=== PATIENT | male | born 1985 | race Caucasian/White ===

== ENCOUNTER 2024-09-22 10:52 | Emergency (ER) | payer OTHER, SELFPAY ==
--- NOTE | ~2024-09-22 | XR_ITS ---
EXAMINATION: XR HAND, LEFT CLINICAL INFORMATION: nail in hand COMPARISON: None available. TECHNIQUE: PA, lateral, and oblique views of the left hand. FINDINGS: A nail is present traversing the thenar eminence dorsal to anterior, without bone involvement. No fracture, dislocation, or suspicious bone lesion. Normal alignment. Soft tissues otherwise normal. XR/XR hand LT min 3V IMPRESSION: Metallic nail present traversing the thenar eminence dorsal to anterior, without bony involvement. Electronically signed by: Mendoza Gonzalez MD 09/22/2024 11:40 AM EDT
--- NOTE | ~2024-09-22 | XR_ITS ---
EXAMINATION: XR HAND 3 OR MORE VIEWS LEFT HISTORY: nail removed COMPARISON: Comparison is made with the prior examination performed earlier in the day. FINDINGS: Three views of the left hand are submitted. Osseous mineralization is normal. There is no fracture or dislocation. The joint spaces are preserved. The previously seen nail within the thenar eminence has been removed. A 4 mm linear metallic foreign body remains within the thenar eminence. Small foci of soft tissue gas are also noted, consistent with the removal of the foreign body. XR/XR hand LT min 3V IMPRESSION: Interval removal of a nail within the thenar eminence. A 4 mm linear metallic foreign body remains. Electronically signed by: Bladimir Ely MD 09/22/2024 01:56 PM EDT
[2024-09-22 11:15] VITALS: BP 156/100; PULSE 75; RESP 16; O2SAT 96; BMI 34.9
--- NOTE | 2024-09-22 11:15 | ED_ITS ---
HPI - General Adult General Chief complaint: Skin/Abscess/Foreign Body Stated complaint: Work injury Time Seen by Provider: 09/22/24 11:49 Source: patient and family (patient's ) Mode of arrival: ambulatory Limitations: no limitations History of Present Illness ED Provider: Bessy Betancourt PA-C HPI narrative: Patient is a 39 year old assigned male at with no reported medical history presenting to the emergency department today with a screw shank nail in his left hand. Patient states that he is right hand dominant. Patient states that he was at work using a nail gun when he accidentally shot his left hand with a 1 and 1/4th inch screw shank nail. Patient denies any numbness, tingling, dizziness, lightheadedness, abdominal pain, nausea, vomiting, fever, chills, blurry vision, double vision, loss of vision, chest pain, difficulty breathing, shortness of breath, back pain, night sweats, pain with urination, increased urinary frequency, increased urinary urgency, blood in his urine or stool, syncope or a near syncopal episode, bowel incontinence, bladder incontinence, or any other complaints at this time. Location: left and upper extremity Radiation: non-radiation Relieving factors: none Exacerbating factors: none Associated symptoms: denies other symptoms Treatments prior to arrival: none Related Data Previous Rx's ?Medication ?Instructions ?Recorded amoxicillin 875 mg-potassium 1 tab PO BID 10 days #20 tabs 09/22/24 clavulanate 125 mg tablet Allergies Allergy/AdvReac Type Severity Reaction Status Date / Time No Known Allergies Allergy Verified 09/22/24 11:16 Review of Systems 2 Constitutional: Constitutional: Reports no additional constitutional complaints, Denies chills, Denies fever(s) and Denies night sweats Eyes: Eyes: Reports no additional eye complaints, Denies blurry vision, Denies change in vision, Denies diplopia, Denies eye discharge, Denies loss of vision and Denies eye pain ENT: Denies dizziness Cardiovascular: Cardiovascular: Reports no additional cardiovascular complaints, Denies chest pain, Denies lightheadedness, Denies Loss of Consciousness and Denies dyspnea Respiratory: Respiratory: Reports no additional respiratory complaints and Denies dyspnea Gastrointestinal: Gastrointestinal: Reports no additional gastrointestinal complaints, Denies abdominal pain, Denies melena, Denies hematochezia, Denies change in bowel habits and Denies change in stool character Genitourinary: Genitourinary: Reports no additional male genitourinary complaints, Denies hematuria, Denies oliguria, Denies difficulty urinating, Denies dysuria, Denies urinary frequency, Denies urinary hesitancy, Denies urinary incontinence and Denies urinary urgency Musculoskeletal: Musculoskeletal: Reports no additional musculoskeletal complaints, Denies numbness and Denies tingling Comments: nail in left hand Neurologic: Denies dizziness, Denies loss of vision, Denies numbness and Denies tingling Psychiatric: Psychiatric: Reports no additional psychiatric complaints Endocrine: Endocrine: Reports no additional endocrine complaints Hematologic/Lymphatic: Hematologic/Lymphatic: Reports no additional hematologic/lymphatic complaints Allergic/Immunologic: Allergic/Immunologic: Reports no additional allergic/immunologic complaints PMFSH Past Medical History Attestation statement: The following information was validated with the patient. (patient's validated all information) Source: old records reviewed, obtained from family (patient's provided additional history and confirmed the history provided by the patient. ) and nursing notes reviewed Social History Social History Smoked in Last 30 Days: No Advance Directives: No Advance Directives Information Provided: Yes Do you have a plan to hurt others: No Plan Physical Exam ED Vital Signs: Vital Signs - 24 hr 09/22/24 11:15 Pulse Rate 75 Respiratory Rate 16 Blood Pressure 156/100 H Pulse Oximetry 96 Oxygen Delivery Method Room Air BMI result Body Mass Index 34.9 Const General: cooperative, no acute distress, alert and awake Nutritional Appearance: well nourished Orientation/consciousness: patient oriented x3 Limitations: no limitations [facility] Head: Yes normal to inspection and Yes atraumatic Ears: hearing grossly normal bilaterally and external ears normal General nose exam: Normal external nose present, no nasal discharge noted and no epistaxis Face and sinus: Yes normal facial exam, No abrasion and No laceration Mouth: Normal oral and palatal mucosa present, no drooling and no muffled voice Eyes General: appearance normal, both eyes and all related structures Periorbital: periorbital findings normal Eyelids: Yes eyelids normal Conjunctivae: conjunctivae normal Pupils: Equal, round and reactive pupils present EOM: EOMs intact bilaterally Neck Neck: Yes normal visual inspection, Yes full ROM and Yes no lymphadenopathy Chest Chest palpation & inspection: normal inspection of the chest Resp Effort & Inspection: normal respiratory effort and able to speak in complete sentences GI Inspection: Yes normal to inspection Neuro General: patient oriented x3, moves all extremities and CN's II-XI intact bilaterally Cranial nerves: Yes Equal, round and reactive pupils present Cognition (Neuro): normal cognition Extrem Other: General: Yes full ROM and Yes capillary refill normal Psych Appearance: grossly normal Mental Status: mental status grossly normal Affect: normal affect Attitude: cooperative Thought process: Normal thought process present Thought content: Normal thought content present Insight: Good insight present (Psych) Course Course Course Narrative: RME performed by Bessy Betancourt PA-C. Patient is a 39 year old assigned male at presenting to the emergency department with a nail in his left hand. Patient states that he was at work when he accidentally shot himself in the left hand with a nail gun. Detailed physical exam and review of systems are deferred to the executive communications manager. Imaging ordered. Patient placed back in the waiting room pending room availability and results. Medications Administered Discontinued Medications Generic Name Dose Route Start Last Admin Trade Name Freq PRN Reason Stop Dose Admin Diphtheria/Tetanus/Acell Pertussis 0.5 ml 09/22/24 11:17 09/22/24 12:14 Diphth,Pertus(Acell),Tet Adult 0.5 Ml Syringe IM 09/22/24 11:18 0.5 ml .ONCE ONE Administration Piperacillin Sod/Tazobactam 50 mls @ 100 mls/hr 09/22/24 13:39 09/22/24 13:57 Sod 3.375 gm/ Sodium Chloride IV 09/22/24 14:08 100 mls/hr ONCE ONE Administration Lidocaine HCl 10 ml 09/22/24 13:19 09/22/24 13:44 Lidocaine Hcl 1 % Mpf 5 Ml Vial SUBCUT 09/22/24 13:20 10 ml ONCE ONE Administration Morphine Sulfate 4 mg 09/22/24 12:03 09/22/24 12:14 Morphine Sulfate 4 Mg/Ml Cartridge IVPUSH 09/22/24 12:04 4 mg ONCE ONE Administration Protocol Ondansetron HCl 4 mg 09/22/24 12:03 09/22/24 12:14 Ondansetron Hcl 4 Mg/2 Ml Vial IVPUSH 09/22/24 12:04 4 mg ONCE ONE Administration Procedures Foreign Body Removal Time Out Performed: yes Site: left and hand Description of foreign body: other (screw shank nail) Sedation/Analgesia: other (local lidocaine) Technique: manual removal and removal with forceps Confirmed by:: direct visualization and radiograph Complications: none Post-procedure exam: awake, alert, normal BP, normal HR and normal O2 sat Neurovascular: normal distal pulse, normal capillary fill, distal light touch sensation intact, distal motor function normal, no change from pre-procedure and other Medical Decision Making Medical Decision Making MDM Narrative: Patient is a 39 year old assigned male at with no reported medical history presenting to the emergency department today with a screw shank nail in his left hand. Patient's physical exam was as noted in the physical exam portion of this note. Patient's left hand PMS was intact. Patient's blood work showed a mild WBC count elevation of 13.9 which is consistent with a stress reaction. Patient's left hand x-ray showed a metallic nail traversing the thenar eminence dorsal to anterior without bony involvement. I spoke to the orthopedic team who recommended local lidocaine around then nail and manual removal. I explained my physical exam findings as well as all test results to the patient and the patient's . I answered all questions asked by the patient and the patient's . Patient's hand was numbed and the nail was removed, without incident. Patient's left hand PMS was intact prior to and after nail removal. Patient's repeat x-ray confirmed removal of the nail but also confirmed retained piece of copper. I spoke with the orthopedic team again who recommended PO antibiotic and follow up in their office outpatient. Patient was brought up to date on tetanus while in the department. Patient was given IV morphine and Zosyn. I stressed the importance of the patient taking his medication as directed (either prescribed or as the over the counter packaging recommends). I stressed the importance of the patient following up with his primary care provider, the orthopedic team, and work connection. I stressed the importance of the patient returning to the emergency department immediately if his symptoms were to worsen or if he were to develop any dizziness, shortness of breath, difficulty breathing, chest pain, blurry vision, loss of vision, nausea, vomiting, abdominal pain, fever, chills, back pain, or any other complaints. Patient and the patient's verbalized agreement and understanding with this treatment plan and discharge. Picture of removed foreign body: Differential Diagnosis Differential Diagnoses: The differential diagnosis associated with the presentation includes Retained foreign body in left hand Left hand foreign body Left hand pain Admission/Observation Consideration of admission/observation: Escalation of care including admission/observation considered Patient would have been admitted to the hospital had his work up had any findings where hospital admission was appropriate and his clinical presentation warranted hospital admission. Consult Healthcare Provider Management of the patient was discussed with: City Solicitor (spoke with the orthopedic team as noted in the MDM Rationale portion of this note. ) Lab Data [facility] Lab Attestation statement: I reviewed the patient's lab results. My interpretation of these results are in the MDM Rationale portion of this note. 09/22/24 12:23 09/22/24 12:23 Labs: Lab Results 09/22/24 Range/Units 12:23 WBC 13.9 H (4.8-10.8) X10*3/uL RBC 5.28 (4.60-5.80) X10*6/uL Hgb 15.2 (14.0-18.0) g/dl Hct 42.8 (42.0-52.0) % MCV 81.1 (80.0-98.0) fL MCH 28.8 (27.0-33.0) pg MCHC 35.5 (31.0-36.0) g/dl RDW 12.7 (11.0-16.0) % Plt Count 317 (160-400) X10*3/uL MPV 10.1 (9.4-12.4) fL Immature Gran % (Auto) 0.6 H (0.0-0.4) % Neut % (Auto) 61.2 (45-73) % Lymph % (Auto) 30.0 (20-40) % [place] % (Auto) 4.9 (2-11) % Eos % (Auto) 2.7 (0-4) % Baso % (Auto) 0.6 (0-2) % Lymph # (Auto) 4.2 (1.2-4.9) X10*3/uL [place] # (Auto) 0.7 (0.1-1.2) X10*3/uL Eos # (Auto) 0.4 (0.0-0.4) X10*3/uL Baso # (Auto) 0.1 (0.0-0.2) X10*3/uL Abs Immat Gran (auto) 0.08 H (0.00-0.03) X10*3/uL Absolute Neuts (auto) 8.5 H (2.0-8.3) x10*3/uL Absolute Nucleated RBC 0.000 (0.0-0.012) X10*3/uL Nucleated RBC % (auto) 0.0 (0.0-0.2) /100WBC Sodium 139 (135-145) mmol/L Potassium 4.4 (3.3-5.1) mmol/L Chloride 106 (96-108) mmol/L Carbon Dioxide 25 (22-29) mmol/L Anion Gap 12 (12-20) BUN 23 H (9-16) mg/dL Creatinine 0.82 (0.5-1.4) mg/dL Estim Creat Clear Calc 127.0 Estimated GFR > 60 Random Glucose 96 (60-115) mg/dL Calcium 10.1 (8.4-10.2) mg/dL Total Bilirubin 0.4 (0.0-1.0) mg/dL AST 33 (5-37) U/L ALT 57 H (0-40) U/L Total Protein 7.8 (6.5-8.0) g/dL Albumin 4.9 (3.5-5.0) g/dL Blood Type A Positive Antibody Screen NEGATIVE Independent Interpretation I performed an independent interpretation of an: Plain X-Ray (Left hand x-ray pre and post FB removal) Interpretation: My interpretation is in agreement with the radiologist's impression of these imaging studies. L EXAMINATION: XR HAND, LEFT CLINICAL INFORMATION: nail in hand COMPARISON: None available. TECHNIQUE: PA, lateral, and oblique views of the left hand. FINDINGS: A nail is present traversing the thenar eminence dorsal to anterior, without bone involvement. No fracture, dislocation, or suspicious bone lesion. Normal alignment. Soft tissues otherwise normal. XR/XR hand LT min 3V IMPRESSION: Metallic nail present traversing the thenar eminence dorsal to anterior, without bony involvement. Electronically signed by: Mendoza Gonzalez MD 09/22/2024 11:40 AM EDT Dictated By: Mendoza Gonzalez MD Signed By: Electronically signed by Mendoza Gonzalez MD 09/22/24 1140 EXAMINATION: XR HAND 3 OR MORE VIEWS LEFT HISTORY: nail removed COMPARISON: Comparison is made with the prior examination performed earlier in the day. FINDINGS: Three views of the left hand are submitted. Osseous mineralization is normal. There is no fracture or dislocation. The joint spaces are preserved. The previously seen nail within the thenar eminence has been removed. A 4 mm linear metallic foreign body remains within the thenar eminence. Small foci of soft tissue gas are also noted, consistent with the removal of the foreign body. XR/XR hand LT min 3V IMPRESSION: Interval removal of a nail within the thenar eminence. A 4 mm linear metallic foreign body remains. Electronically signed by: Bladimir Ely MD 09/22/2024 01:56 PM EDT RP Dictated By: Bladimir Ely MD Signed By: Electronically signed by Bladimir Ely MD 09/22/24 1356 Radiology Impression Discussion of test interpretation with radiology: I have reviewed the radiologist's reading. Independent Historian Clinical information obtained from an independent historian. History obtained from or confirmed by: Spouse (Patient's provided additional history and confirmed the history provided by the patient.) Prescription Management I considered prescription management with: Antibiotic (patient prescribed prophylactic augmentin given the mechanism of injury and retained foreign body) Critical Care Time Critical Care Time Critical Care Time: Yes Total Critical Care Time: 34 Attestation: I spent 34 minutes of Critical Care Time with this patient. This does not include time spent on separately reported billable procedures. Discharge Plan Discharge Clinical Impression: Foreign body (FB) in soft tissue Patient Disposition: Home, Self-Care Instructions: Soft Tissue Foreign Body (ED) Additional Instructions: There is a piece of copper remaining in your hand - it is crucial you follow up with the hand surgeon about this. Take your antibiotic as directed. Perform daily dressing changes and wound checks. You may loosen your current dressing if you begin to have any numbness or tingling in your left fingers or hand. You may get the affected area wet but DO NOT soak it and until it is fully healed please avoid lakes, pools, oceans, [place], ravines, etc. Follow up with your primary care provider, the orthopedic team, and given this was a work place injury - the work connection office. Return to the emergency department immediately if your symptoms worsen or if you develop any numbness, tingling, dizziness, shortness of breath, difficulty breathing, chest pain, blurry vision, loss of vision, nausea, vomiting, abdominal pain, fever, chills, back pain, or any other complaints. Please see the information below about our Patient Portal. If you are not yet enrolled in the [facility] Patient Portal, you will receive an enrollment email invitation following your visit to any [facility] setting. You may also self-enroll in the Patient Portal by visiting our website: [email or web address] The following information is required to access the Patient Portal: - Your [facility] Medical Record Number - Your personal home email address (must match what is in your electronic medical record, Registration staff can assist with this) - Name - Date of Capabilities of the Patient Portal: - Message some providers - View upcoming appointments - Access your health summary, medical history, and visit history - View current conditions and allergies - View procedure and lab results - View your medications, including guidelines, side effects, and precautions - Complete pre-appointment questionnaires requested by your provider - Ready summary reports of your office visits and procedures To access the Patient Portal Mobile Tiera, follow these directions: - Search [employer] (V3D) in the Tiera Store or [employer] Store - Download the Tiera - Search for [facility] - Enter your login/password Prescriptions: New amoxicillin-pot clavulanate 875-125 mg tablet 1 tab PO BID 10 Days Qty: 20 0RF Referrals: [facility] Orthopedic Surgeons [Provider Group] (Call to establish and follow up with a hand specialist. ) Work Connection [Provider Group] (Given this was a work place incident, call to establish and follow up with work connection. ) Group,[facility] [Primary Care Provider] - Stand Alone Forms: Work/School Release Print Language: Yoruba
[2024-09-22] MEDS: Diphth,Pertus(ACell),Tet Adult 0.5 ML SYRINGE IM (12:14)
[2024-09-22] MEDS: Morphine Sulfate 4 MG/ML CARTRIDGE IVPUSH (12:14)
[2024-09-22] MEDS: ondansetron HCL 4 MG/2 ML VIAL IVPUSH (12:14)
[2024-09-22 12:29] LABS: Basophils Absolute Auto 0.1 X10*3/uL (0.0-0.2); Basophils Percent Auto 0.6 % (0-2); Eosinophils Absolute Auto 0.4 X10*3/uL (0.0-0.4); Eosinophils Percent Auto 2.7 % (0-4); Hematocrit 42.8 % (42.0-52.0); Hemoglobin 15.2 g/dl (14.0-18.0); Imm Gran Abs Auto 0.08 X10*3/uL (0.00-0.03); Imm Gran Pct Auto 0.6 % (0.0-0.4); Lymphocytes Absolute Auto 4.2 X10*3/uL (1.2-4.9); MANUAL DIFF FLAG NO; Mean Corpuscular HGB Conc 35.5 g/dl (31.0-36.0); Mean Corpuscular Hemoglobin 28.8 pg (27.0-33.0); Mean Corpuscular Volume 81.1 fL (80.0-98.0); Mean Platelet Volume 10.1 fL (9.4-12.4); Monocytes Absolute Auto 0.7 X10*3/uL (0.1-1.2); Monocytes Percent Auto 4.9 % (2-11); Neutrophils Absolute Auto 8.5 x10*3/uL (2.0-8.3); Neutrophils Percent Auto 61.2 % (45-73); Platelet Count 317 X10*3/uL (160-400); Red Blood Count 5.28 X10*6/uL (4.60-5.80); Red Cell Distribution Width 12.7 % (11.0-16.0); White Blood Count 13.9 X10*3/uL (4.8-10.8)
[2024-09-22 13:03] LABS: Alanine Aminotransferase 57 U/L (0-40); Albumin Level 4.9 g/dL (3.5-5.0); Anion Gap 12 (12-20); Aspartate Amino Transferase 33 U/L (5-37); Bilirubin Total 0.4 mg/dL (0.0-1.0); Blood Urea Nitrogen 23 mg/dL (9-16); Calcium 10.1 mg/dL (8.4-10.2); Carbon Dioxide 25 mmol/L (22-29); Chloride 106 mmol/L (96-108); Estimated Glomerular Filt Rate > 60; Glucose Random 96 mg/dL (60-115); Potassium 4.4 mmol/L (3.3-5.1); Sodium 139 mmol/L (135-145); Total Protein 7.8 g/dL (6.5-8.0)
[2024-09-22] MEDS: Lidocaine HCl 1 % MPF 5 ML VIAL 10 ML SUBCUT (13:44)
[2024-09-22] MEDS: Piperacillin Sodium/Tazobactam 3.375 GM in 0.9 % Sodium Chloride 50 ML IV (13:57)
--- OUTSIDE RECORDS SUMMARY | 2024-09-22 14:12 | XMS_ITS | Clinical Summary ---
Author Organization [facility] ity Address [address] [place] [address] Care Team Providers Care Clarifying Plant Operator Name Role Phone Sander Byrd MD Primary Care Provider Allergies No known active allergies Medications loratadine (CLARITIN) 10 mg tablet Take 1 Tablet by mouth daily. 11/09/2022 Active pantoprazole (PROTONIX) 40 mg EC tabletIndication s:Gastroesophage al reflux disease without esophagitis Take 1 tablet (40 mg total) by mouth 1 (one) time each day before breakfast. Do not crush, chew, or split. 90 each 3 07/28/2024 Active Active Problems Problem Noted Date Diagnosed Date Asthma 05/29/2024 Abdominal pain 05/14/2023 Nausea and vomiting 05/14/2023 Elevated random blood glucose level 12/27/2020 Hyperlipidemia 12/27/2020 Severe obesity (BMI 35.0-39. 9) with comorbidity ([facility] V24, CMS/[facility] V28) 12/23/2020 GERD (gastroesophageal reflux disease) 7 Allergic rhinitis 06/29/2014 History of heroin abuse (CMS/HCC V24, CMS/[facility] V2 8) 06/29/2014 Encounters Date Type Department Care Team Description 07/28/2024 Telephone Gastroenterology - [address] [place] [address] Maty Lewis MD from Last 3 Months Immunizations Name Administration Dates Next Due Hepatitis B (Invynag-N-Rghww , Recombivax HB-Adult) 19yo and older 01/31/2017 Influenza trivalent, with pr eservative (Fluzone; Afluria) 6mo and older 06/29/2014 MMR, measles mumps and rubel la Live (Priorix; M-M-R II) 12mo and older 01/31/2017 Tdap Tetanus diptheria acell ular pertussis (Boostrix; Adacel) 7yo and older 04/19/2017,06/29/2014 Surgical History Surgery Date Site/Laterality Comments TONSILLECTOMY PROCEDURE: HISTORICAL TONSILLECTOMY CHOLECYSTECTOMY 2019 PROCEDURE: HISTORICAL CHOLECYSTECTOMY Medical History Medical History Date Comments Asthma DX:Asthma Family History Medical History Relation Name Comments Stroke Father HTN Pancreatic cancer Maternal Grandmother di abetes Arthritis Mother Lung cancer Paternal Grandfather +smoker COPD Paternal Grandmother +smoker Relation Name Status Comments Brother x 1 Alive Father Alive Maternal Grandfather Alive Maternal Grandmother Mother Alive Paternal Grandfather Paternal Grandmother Alive Sister x 1 Alive Social History Tobacco Use Types Packs/Day Years Used Date Smoking Tobacco: Every Day Cigarettes Smokeless Tobacco: Never Alcohol Use Standard Drinks/Week Comments Yes 0 (1 standard drink = 0.6 oz pur e alcohol) Sex and Gender Information Value Date Recorded Sex Assigned at Not on file Legal Sex Male 4:51 PM EST Gender Identity Not on file Sexual Orientation Not on file Obstetrics History Last Filed Vital Signs Vital Sign Reading Time Taken Comments Blood Pressure 138/82 11/09/2022 11:58 AM EDT Pulse 84 05/14/2023 11:55 AM EST Temperature - - Respiratory Rate - - Oxygen Saturation - - Inhaled Oxygen Concentration - - Weight 96.2 kg (212 lb) 05/14/2023 11:55 AM EST Height 165.1 cm (5' 5 ) 05/14/2023 11:55 AM EST Body Mass Index 35.28 05/14/2023 11:55 AM EST Plan of Treatment Health Maintenance Due Date Last Done Comments Pneumococcal Vaccine: Pediatrics (0 to 5 Years) and At-Risk Patients (6 to 64 Years) (1 of 2 - PCV) 2003 Hepatitis B Vaccines (2 of 3 - 19+ 3-dose series) 02/28/2017 01/31/2017 Depression Screening 05/09/2022 Social Influencers of Health Screening 05/09/2022 COVID-19 Vaccine ( - 2023-2 5 season) 2024 Influenza Vaccine (Season Ended) 2025 06/29/2014 Cholesterol Screening (Lipid Panel) 01/07/2026 01/07/2021 DTaP,Tdap,and Td Vaccines (3 - Td or Tdap) 04/19/2027 04/19/2017, 06/29/2014 HIV Screening Completed 12/07/2014 Hepatitis C Screening Completed 12/07/2014 MMR Vaccines Aged Out 01/31/2017 No longer eligi ble based on patient's age to complete this topic HIB Vaccines Aged Out No longer eligi ble based on patient's age to complete this topic HPV Vaccines Aged Out No longer eligi ble based on patient's age to complete this topic Hepatitis A Vaccines Aged Out No long er eligible based on patient's age to complete this topic IPV Vaccines Aged Out No longer eligi ble based on patient's age to complete this topic Meningococcal ACWY Vaccine Aged Out N o longer eligible based on patient's age to complete this topic Meningococcal B Vaccine Aged Out No l onger eligible based on patient's age to complete this topic RSV Immunization Patients Under 20 months Aged Out No longer eligible b ased on patient's age to complete this topic Varicella Vaccines Aged Out No longer eligible based on patient's age to complete this topic Procedures Procedure Name Priority Date/Time Associated Diagnosis Comments LIPID PANEL Routine 01/07/2021 HEPATITIS C SCREENING Routine 12/07/2014 HIV SCREENING Routine 12/07/2014 from Last 3 Months or Most Recently Relevant to Health Maintenance Results * (ABNORMAL) Lipid panel (01/07/2021) Pathologist [facility] [place] LDL/HDL Ratio 6(A) 0 - 4 Triglycerides 314(A) 0 - 150 mg/dL Cholesterol 224(A) 0 - 200 mg/dL HDL 38(A) >=40 mg/dL LDL Cholesterol 124(A) 0 - 100 mg/dL Blood Venous blood specimen / Unknown Historical Provider LAB BLOOD ORDERABLES Julieta l Result * HIV Screening (12/07/2014) Pathologist [facility] [place] HIV Screening Abstarcted Historical Provider HEALTH MAINTENANCE Final Result * Hepatitis C Screening (12/07/2014) Hepatitis C Screening Abstarcted Historical Provider HEALTH MAINTENANCE Final Result from Last 3 Months or Most Recently Relevant to Health Maintenance Care Teams Clarifying Plant Operator Relationship Specialty Start Date End Date Sander Byrd MD [address] [place] [address] PCP - General 07/12/22
[2024-09-22 16:59] LABS: Alkaline Phosphatase 98 U/L (39-117)
[2024-09-22 18:06] VITALS: BP 156/100; PULSE 75; RESP 16; TEMP 37.1; O2SAT 96
== END 2024-09-22 18:07 | disposition home or self-care (01) ==
PROVIDERS: Physician Assistant Medical; Emergency Provider Emergency Medicine
DX: S61.442A Puncture wound with foreign body of left hand, initial encounter (principal); M79.5 Residual foreign body in soft tissue; W29.4XXA Contact with nail gun, initial encounter; Y93.9 Activity, unspecified; Y92.89 Other specified places as the place of occurrence of the external cause; Y99.0 Civilian activity done for income or pay
CPT/HCPCS: 36415; 73130; 80053; 85025; 86850; 86900; 86901; 90471; 90715; 96374; 96375; 99284; J2003; J2270; J2405; J2543

== ENCOUNTER → 2024-09-22 11:17 | Outpatient (BNV) | payer OTHER, SELFPAY | PROVIDERS: Visit Provider Radiology Diagnostic Radiology | DX: M79.642 Pain in left hand (principal); W45.0XXA Nail entering through skin, initial encounter | CPT/HCPCS: 73130 ==

== ENCOUNTER 2024-09-25 12:51 | Outpatient (AMB) | payer OTHER, SELFPAY ==
--- NOTE | 2024-09-25 13:11 | MHC.OFFVIS ---
Vital Signs 09/25/24 13:14 Height 5 ft 5 in Weight 215 lb BMI 35.8 Handedness Right Intake Visit Reasons: ED f/u s/p Foreign body removal LT Hand Intake Note: Logan is a 39 year old right hand dominant male who presents today as a new patient for an emergency department follow up for his left hand. Patient states that he was at work using a nail gun when he accidentally shot his left hand with a 1 and 3 quarter inch screw shank nail. Denies numbness and tingling. Patient reports minimal pain, tenderness and soreness in the palm area of the left hand. Allergies No Known Allergies Allergy (Verified 09/25/24 13:15) HPI HPI ED f/u s/p Foreign body removal LT Hand: Details: Logan is a 39 year old right hand dominant male who presents today as a new patient for an emergency department follow up for his left hand. Patient states that he was at work using a nail gun when he accidentally shot his left hand with a 1 and 3 quarter inch screw shank nail. Denies numbness and tingling. Patient reports minimal pain, tenderness and soreness in the palm area of the left hand. [facility] Social History (Updated 09/25/24 @ 13:16 by SAQIB Willson) Current occupational status: employed Current occupation: Builds pallets Physical Exam Vital Signs: BMI result Body Mass Index 35.8 Assessment & Plan Assessment & Plan (1) Foreign body (FB) in soft tissue: Code(s): M79.5 - Residual foreign body in soft tissue Category: Medical Plan History of Present Illness The patient is a 39-year-old male presenting with worsening redness and the presence of a foreign body in his hand. The injury was sustained on Saturday when the patient accidentally embedded a piece of copper wire into his hand using a coil nail gun without hitting any wood. The patient received initial care at the ER, where antibiotics (Amoxicillin-Clavulanate) were prescribed. Symptoms include soreness, tenderness, and notable bruising, alongside a developing flash burn from the incident. The copper wire is identified via X-ray and remains in place, increasing concerns for potential infection. Review of Systems - Integumentary: Reports soreness, tenderness, redness, bruising, and swelling of the hand. - Musculoskeletal: Reports presence of foreign body (copper wire) in the hand. - General: Denies fever or systemic symptoms. - Infectious: Denies purulent drainage or overt signs of infection. Systems reviewed and are negative except as per HPI and below Physical Exam Patient is alert, oriented, and in no acute distress. Neuro: Normal sensation of the tips of all digits of the left hand at this time Vascular: Cap refill brisk Pain: Tenderness to palpation about wound site on dorsal 1st webspace of left hand Minimal discomfort with range of motion of the left hand ROM: Patient is able to closed fist and extend all digits of the left hand fully and with minimal difficulty Skin: Small, approximately 0.5 cm in circumference circular wound noted on dorsal aspect of left hand in the 1st webspace General: Some mild erythema noted about the wound on the left hand Psych: Appears grossly normal Affect normal Attitude cooperative Results - Imaging: X-ray confirms presence of a foreign body (copper wire fragment) in the soft tissue of the hand. Procedure Plan The treatment plan involves the management of the foreign body copper wire fragment) with the continuation of Amoxicillin-Clavulanate, monitoring for infection, and scheduled follow-up for surgical assessment if necessary. Current management involves wound care with gauze and Coban to prevent moisture retention. Immediate re-evaluation is advised if there is progression or signs of deep-seated infection. Patient was informed and verbally consented to the use of an ambient scribe for clinic note documentation during this visit. Discussion Notes I discussed with the patient the current status of the foreign body in his hand, emphasizing the importance of continuing the antibiotics to manage potential infection. We explored the risks and benefits of the non-surgical approach versus surgical removal. Given minimal signs of purulence or deep tissue infection, conservative management with antibiotics was favored. Risks include possible infection progression, while removal risks include significant surgical intervention without guaranteed localization. I informed the patient of the necessity to follow up with Dr. Burch and the potential need for surgery if symptoms worsen. We discussed maintaining dressing techniques to prevent moisture retention, with a goal of ensuring the area stays dry. Emergency care was advised should symptoms suggest an abscess or severe infection development. I provided guidance on careful handling of the affected hand to prevent exacerbation of symptoms. Patient Instructions - Continue taking prescribed antibiotics (Augmentin) for 10 days. - Use gauze and Coban for wound dressing; avoid Band-Aids. - Keep the wound clean and dry. Use a plastic bag when showering. - Avoid soaking the hand in water, such as in baths or hot tubs. - Monitor for increased redness, swelling, or pain and seek immediate care if noted. - Follow up with Dr. Burch as scheduled. - Return to the emergency department if you observe pus or experience increased pain. Orders: Orders XR hand LT min 3V Today M79.642 - Pain in left hand Coding Level of Care Code New Pt Level 3 (42392) Diagnoses Foreign body (FB) in soft tissue M79.5
[2024-09-25 13:14] VITALS: BMI 35.8
--- OUTSIDE RECORDS SUMMARY | 2024-09-25 13:24 | XMS_ITS | Clinical Summary ---
Author Organization [facility] ity Address [address] [place] [address] Care Team Providers Care Pantry Cook Name Role Phone Sander Byrd MD Primary [...] Severe obesity (BMI 35.0-39. 9) with comorbidity ([facility] V24, [facility] V28) 12/23/2020 GERD (gastroesophageal reflux disease) 7 Allergic rhinitis 06/29/2014 History of heroin abuse (CMS/HCC V24, [facility] V2 8) 06/29/2014 Encounters Date Type Department Care Team Description 07/28/2024 Telephone Gastroenterology - [address] [place] [address] Maty Lewis MD from Last 3 Months Immunizations Name Administration Dates Next Due Hepatitis B (Qegcenl-M-Txsqk , Recombivax HB-Adult) 19yo and older 01/31/2017 [...] Results * (ABNORMAL) Lipid panel (01/07/2021) Pathologist [facility] LDL/HDL Ratio 6(A) 0 - 4 Triglycerides 314(A) 0 - 150 mg/dL Cholesterol 224(A) 0 - 200 mg/dL HDL 38(A) >=40 mg/dL LDL Cholesterol 124(A) 0 - 100 mg/dL Blood Venous blood specimen / Unknown Historical Provider LAB BLOOD ORDERABLES Julieta l Result * HIV Screening (12/07/2014) Pathologist [facility] HIV Screening Abstarcted Historical Provider HEALTH MAINTENANCE Final Result * Hepatitis C Screening (12/07/2014) Hepatitis C Screening Abstarcted Historical Provider HEALTH MAINTENANCE Final Result from Last 3 Months or Most Recently Relevant to Health Maintenance Care Teams Pantry Cook Relationship Specialty Start Date End Date Sander Byrd MD [address] [place] [address] PCP - General 07/12/22
== END 2024-09-25 13:47 | disposition home or self-care (01) ==
LOC: HO.HOS 12:51
DX: M79.5 Residual foreign body in soft tissue (principal)
CPT/HCPCS: 99203

== ENCOUNTER 2024-09-25 12:51 | Outpatient (REF) | payer OTHER, SELFPAY ==
--- NOTE | ~2024-09-25 | XR_ITS ---
EXAMINATION: XR HAND 3 OR MORE VIEWS LEFT HISTORY: M79.642 - Pain in left hand COMPARISON: Comparison is made with the prior examination dated 09/22/2024. FINDINGS: Three views of the left hand are submitted. Osseous mineralization is normal. There is no fracture or dislocation. The joint spaces are preserved. Again seen is a linear metallic foreign body in the thenar eminence. XR/XR hand LT min 3V IMPRESSION: Linear foreign body in the thenar eminence without change. No osseous abnormality is identified. Electronically signed by: Bladimir Ely MD 09/25/2024 01:12 PM EDT
== END 2024-09-25 12:52 | disposition home or self-care (01) ==
LOC: HO.HOSX 12:51
DX: M79.5 Residual foreign body in soft tissue (principal); M79.642 Pain in left hand
CPT/HCPCS: 73130; 99202

== ENCOUNTER → 2024-09-25 12:58 | Outpatient (BNV) | payer OTHER, SELFPAY | PROVIDERS: Visit Provider Radiology Diagnostic Radiology | DX: M79.642 Pain in left hand (principal) | CPT/HCPCS: 73130 ==

== ENCOUNTER 2024-09-30 08:54 | Outpatient (AMB) | payer OTHER, SELFPAY ==
[2024-09-30 09:07] VITALS: BMI 35.8
--- NOTE | 2024-09-30 09:07 | MHC.OFFVIS ---
Vital Signs 09/30/24 09:07 Height 5 ft 5 in Weight 215 lb BMI 35.8 Intake Visit Reasons: OV-discuss s/p Foreign body removal, LT hand Intake Note: Logan 39 yr old male presents today for a follow up visit for his left hand W/C injury DOI 09/22/24. Patient states that he was at work using a nail gun when he accidentally shot his left hand with a 1 and 3 quarter inch screw shank nail. The nail was removed in the ED. Last seen with Kathy Lawrence who instructed patient to continue taking prescribed antibiotics (Augmentin) for 10 days. Today patient states he continues to take his ABX, he has mild soreness numbness and tingling in his 1st webspace. States his ROM is good. Hx of right hand CTR 11/2023 with SETH Villalba. Patient also mention he is also having CTS in his left hand. No EMG done for his left. Allergies No Known Allergies Allergy (Verified 09/30/24 09:12) HPI HPI OV-discuss s/p Foreign body removal, LT hand: Details: Logan is a 39 year old right hand dominant man who presents for a left hand foreign body. he shot a yin nail from a nailgun through his left hand, which at work, DOI: . he was seen in the ED where this was removed, however he has a small piece of retained copper in his hand. He complains of some soreness, numbness, and tingling in his left hand. He has been taking his Abx as instructed. He says he can feel something in his hand, and wants to discuss possible treatment options. He works as a casino dealer, and says he had been back to work on 09/24/24. He finds this painful & difficult for him. Hx of right hand CTR 11/2023 with SETH Villalba. [facility] Social History (Updated 09/30/24 @ 09:14 by Flaca Villa [facility]) Current occupational status: employed Current occupation: Builds pallets/ rt hand Review of Systems Const All systems reviewed & are unremarkable except as noted in HPI and below Physical Exam Vital Signs: BMI result Body Mass Index 35.8 Const General: cooperative, healthy appearing and no acute distress Orientation/consciousness: patient oriented x3 HEENT Head: Yes normocephalic and Yes atraumatic Eyes EOM: EOMs intact bilaterally Resp Effort & Inspection: normal respiratory effort and able to speak in complete sentences Cardio Jugular venous distension: no JVD Skin General skin exam: turgor normal Rashes: no rashes Neuro General: patient oriented x3 Extrem Other: Evaluation of Left Upper Extremity: The patient is alert, oriented, and in no acute distress Neuro: Median, Ulnar, Radial nerves motor and sensory intact and sensation is normal to the tips of all digits Vascular: Cap refill brisk ROM: He can make a fist and extend all his digits without pain Normal ROM of the thumb w/o pain Skin: Healing puncture wound over the dorsal 1st webspace with minimal erythema, no drainage No wound on the palmar side No infxn today Radiographs: 3 views of the left were taken, viewed, and compared to radiographs from 09/22/24 by me today in clinic. They show a roofers nail entering dorsally through the 1st webspace. Today shows the removal of the nail, however there is a retained slender ~5mm in length by ~1mm in diameter, linear metallic foreign body in the 1st webspace Psych Appearance: grossly normal Affect: normal affect Attitude: cooperative Assessment & Plan Assessment & Plan (1) Puncture wound of left hand: Code(s): S61.432A - Puncture wound without foreign body of left hand, initial encounter Category: Medical (2) Foreign body of left hand: Code(s): S60.552A - Superficial foreign body of left hand, initial encounter Category: Medical Plan Assessment & Plan: 1. Left hand puncture wound 2. Left hand retained foreign body, S/P Nailgun injury, DOI: 09/22/24 Nail removed in ED on 09/22/24 Retained metallic foreign body, ~5mm length by ~1mm diameter This is a work-related injury The patient appears to be doing well overall As he cannot consistently point out the location of the retained foreign body, I am hesitant to proceed with surgery as the risks outweight the benefits of surgical intervention at this time If this becomes more bothersome, we may consider surgery in the future I explained the signs and symptoms of infection, if the patient develops any new or worsening erythema, drainage, pain, or warmth they should contact the clinic or attend the ED. He will continue to take his Abx as instructed I discussed activity modifications, he should avoid any heavy impact activities at this time. He will perform gentle ROM exercises at home He was given a note to return to work on light duty, effective 09/30/24. He will return to full duty on 10/05/24 He can follow up prn Scribed for Cristina Burch MD by Edvin Holland, medical device sales consultant, on 09/30/24 at 9:40 AM, EST. Coding Level of Care Code Est Pt Level 4 (34160) Diagnoses Puncture wound of left hand S61.432A Foreign body of left hand S60.552A
--- OUTSIDE RECORDS SUMMARY | 2024-09-30 09:33 | XMS_ITS | Clinical Summary ---
Author Organization [facility] ity Address [address] [place] [address] Care Team Providers Care Airplane Electrical Repairer Name Role Phone Sander Byrd MD Primary [...] Severe obesity (BMI 35.0-39. 9) with comorbidity ([facility] V24, [facility] V28) 12/23/2020 GERD (gastroesophageal reflux disease) 7 Allergic rhinitis 06/29/2014 History of heroin abuse (CMS/HCC V24, [facility] V2 8) 06/29/2014 Encounters Date Type Department Care Team Description 07/28/2024 Telephone Gastroenterology - [address] [place] [address] Maty Lewis MD from Last 3 Months Immunizations Name Administration Dates Next Due Hepatitis B (Aynkhew-S-Lujed , Recombivax HB-Adult) 19yo and older 01/31/2017 [...] Recently Relevant to Health Maintenance Care Teams Airplane Electrical Repairer Relationship Specialty Start Date End Date Sander Byrd MD [address] [place] [address] PCP - General 07/12/22
== END 2024-09-30 10:05 | disposition home or self-care (01) ==
PROVIDERS: Visit Provider Orthopaedic Surgery
DX: S61.432A Puncture wound without foreign body of left hand, initial encounter (principal); S60.552A Superficial foreign body of left hand, initial encounter
CPT/HCPCS: 99214

== ENCOUNTER → 2024-09-30 08:54 | Outpatient (BNVA) | payer OTHER, SELFPAY | PROVIDERS: Visit Provider Orthopaedic Surgery | DX: S61.432D Puncture wound without foreign body of left hand, subsequent encounter (principal); S60.552D Superficial foreign body of left hand, subsequent encounter; W29.4XXD Contact with nail gun, subsequent encounter | CPT/HCPCS: 99212 ==

== ENCOUNTER 2024-11-19 12:09 | Emergency (ER) | payer OTHER, SELFPAY ==
--- NOTE | ~2024-11-19 | US_ITS ---
EXAMINATION: US SCROTUM WITH DOPPLER COMPLETE HISTORY: right testicular pain. COMPARISON: There are no prior studies available for comparison. FINDINGS: Real-time grayscale ultrasound imaging of the scrotum was performed. Color and spectral Doppler analysis was also performed. RIGHT TESTICLE: The right testis measures 4.9 x 2.7 x 3.4 cm and demonstrates normal homogeneous echotexture. No masses are seen. There are multiple right appendix testes. The right testis demonstrates normal arterial and venous color Doppler and spectral waveforms. RIGHT EPIDIDYMIS: Normal in size, shape, and vascularity. LEFT TESTICLE: The left testis measures 5.2 x 2.5 x 3.7 cm and demonstrates normal homogeneous echotexture. No masses are seen. The left testis demonstrates normal arterial and venous color Doppler and spectral waveforms. LEFT EPIDIDYMIS: Normal in size, shape, and vascularity. VARICOCELE: None. HYDROCELE: There are small bilateral hydroceles. The right hydrocele has particulate echoes. OTHER COMMENTS: None. US/US scrotum IMPRESSION: Small bilateral hydroceles. Electronically signed by: Bladimir Ely MD 11/19/2024 01:14 PM EDT
--- NOTE | ~2024-11-19 | US_ITS ---
EXAMINATION: US SCROTUM WITH DOPPLER COMPLETE HISTORY: right testicular pain. COMPARISON: There are no prior studies available for comparison. FINDINGS: Real-time grayscale ultrasound imaging of the scrotum was performed. Color and spectral Doppler analysis was also performed. RIGHT TESTICLE: The right testis measures 4.9 x 2.7 x 3.4 cm and demonstrates normal homogeneous echotexture. No masses are seen. There are multiple right appendix testes. The right testis demonstrates normal arterial and venous color Doppler and spectral waveforms. RIGHT EPIDIDYMIS: Normal in size, shape, and vascularity. LEFT TESTICLE: The left testis measures 5.2 x 2.5 x 3.7 cm and demonstrates normal homogeneous echotexture. No masses are seen. The left testis demonstrates normal arterial and venous color Doppler and spectral waveforms. LEFT EPIDIDYMIS: Normal in size, shape, and vascularity. VARICOCELE: None. HYDROCELE: There are small bilateral hydroceles. The right hydrocele has particulate echoes. OTHER COMMENTS: None. US/US scrotum doppler IMPRESSION: Small bilateral hydroceles. Electronically signed by: Bladimir Ely MD 11/19/2024 01:14 PM EDT
--- NOTE | ~2024-11-19 | CT_ITS ---
EXAMINATION: CT ABDOMEN AND PELVIS WITH CONTRAST CLINICAL INFORMATION: Right lower quadrant pain COMPARISON: None available. TECHNIQUE: Multidetector volumetric images were obtained from the superior aspect of the liver through the pubic symphysis following administration 85 mL of Omnipaque 350 intravenous contrast. Sagittal and coronal reformatted images were obtained on the technologist's workstation. This CT examination was performed using dose optimization techniques as appropriate, variously including the following: *Automated exposure control *Adjustment of mA and/or kV according to patient size (this includes techniques or standardized protocols for targeted exams where dose is matched to indication/reason for exam; i.e. extremities or head) *Use of iterative reconstruction technique DLP: 606 mGY*cm FINDINGS: LUNG BASES: Lung bases are clear. LIVER, GALLBLADDER, AND BILIARY TREE: Mild diffuse fatty changes are present in the liver. Gallbladder is surgically absent with clips in the gallbladder fossa. Extra hepatic bile duct is unremarkable. PANCREAS: Unremarkable. SPLEEN: Unremarkable. ADRENAL GLANDS: Unremarkable. KIDNEYS AND URETERS: Low attenuating regions in the mid region of both kidneys, right larger than left, laterally, are most consistent with benign simple renal cysts. No stones and no hydronephrosis. BLADDER: Unremarkable. GASTROINTESTINAL TRACT: The small and large bowel are unremarkable. The appendix is unremarkable. ABDOMINAL WALL: No significant hernia is appreciated. LYMPH NODES: Shotty mesenteric nodes are present in the region of the terminal ileum. VASCULAR: Minimal calcifications present in the wall of the abdominal aorta was performed bifurcation and in the right common iliac artery. PELVIC VISCERA: Unremarkable. OSSEOUS STRUCTURES: Unremarkable. CT/CT abdomen pelvis w IV con IMPRESSION: Shotty mesenteric nodes are noted in the region of the distal ileum, a nonspecific finding. Fatty liver Cholecystectomy Fleischner guidelines were followed. Electronically signed by: Ryan Coon MD 11/19/2024 04:25 PM EDT
[2024-11-19 12:20] VITALS: BP 151/91; PULSE 80; RESP 20; TEMP 36.4; O2SAT 96; BMI 34.7
--- NOTE | 2024-11-19 12:24 | ED.GENADULT ---
HPI - General Adult General Chief complaint: Urogenital-Male Stated complaint: quest hernia Time Seen by Provider: 11/19/24 12:45 Source: patient Mode of arrival: ambulatory Limitations: no limitations History of Present Illness ED Provider: BESSY GLASS narrative: 39 yo male with no PMH hx of cholecystectomy who c/o RLQ pain and R testicle pain but no rash, mass. No fevers, n/v/d and no dysuria. He notes it hurts to move. It became acutely worse while working today. He never saw a bulge or mass in the groin. He has never had a hernia before. He felt nauseated today for the first time due to severe pain. MD complaint: RLQ pain Onset (ago): week(s) (1) Location: abdomen Radiation: non-radiation Severity: moderate Quality: stabbing and aching Pain Consistency: intermittent Relieving factors: none Exacerbating factors: movement Associated symptoms: nausea/vomiting Related Data Home Medications ?Medication ?Instructions ?Recorded ?Confirmed ibuprofen 800 mg tablet 800 mg PO TID 09/25/24 pantoprazole 40 mg tablet,delayed 40 mg PO DAILY 09/25/24 release Previous Rx's ?Medication ?Instructions ?Recorded amoxicillin 875 mg-potassium 1 tab PO BID 10 days #20 tabs 09/22/24 clavulanate 125 mg tablet amoxicillin 875 mg-potassium 1 tab PO BID #14 tabs 11/19/24 clavulanate 125 mg tablet cyclobenzaprine 10 mg tablet 10 mg PO TID PRN muscle spasm #20 11/19/24 tabs ibuprofen 600 mg tablet 600 mg PO Q6H PRN pain #30 tabs 11/19/24 ondansetron 4 mg disintegrating 4 mg PO Q8H PRN nausea and 11/19/24 tablet vomiting #20 tabs Allergies Allergy/AdvReac Type Severity Reaction Status Date / Time No Known Allergies Allergy Verified 11/19/24 12:22 Review of Systems Review of Systems: Constitutional : No Weight loss, No Fever, No Chills ENT/Mouth : No sore throat, No Rhinorrhea Eyes: No Swelling, No Redness Cardiovascular : No Chest Pain, No SOB, NoEdema Respiratory : No Cough, No Sputum, No Wheezing Gastrointestinal : Positive Nausea, no Vomiting, no Diarrhea, positive abdominal Pain, No Hematochezia, No Melena Genitourinary : No Dysuria, No Urinary Frequency, No Hematuria, No Urgency Musculoskeletal : No joint pain, No Myalgias, No Joint Swelling Skin : No Skin Lesions, No rash Neuro : No Weakness, No Numbness, No Dizziness, No Headache All other systems reviewed and are negative. [facility] Past Medical History Attestation statement: The following information was validated with the patient. Source: old records reviewed Social History Social History (Updated 09/30/24 @ 09:14 by SAQIB Romero) Alcohol intake: current Alcohol type: beer Smoked in Last 30 Days: Yes Use of substances other than those prescribed or required for medical reasons: No Advance Directives: No Advance Directives Information Provided: Yes Current occupational status: employed Current occupation: Builds pallets/ rt hand Physical Exam ED Vital Signs: Vital Signs - 24 hr 11/19/24 12:20 11/19/24 13:24 11/19/24 14:00 Temperature 97.5 F 97.5 F 98.0 F Pulse Rate 80 80 68 Respiratory Rate 20 20 16 Blood Pressure 151/91 H 151/91 H 132/89 Pulse Oximetry 96 96 97 Oxygen Delivery Method Room Air Room Air Room Air BMI result Body Mass Index 34.7 Appearance: Alert. Oriented X3. No acute distress. Eyes: Pupils equal, round and reactive to light. ENT: Pharynx normal. Neck: Normal inspection. Neck supple. CVS: Normal heart rate and rhythm. Pulses normal. Respiratory: No respiratory distress. Breath sounds normal. Abdomen: Soft and moderate RLQ with no rebound, no mass felt no ttp along R testicle or cord. Skin: Skin warm and dry. Normal skin color. Normal skin turgor. Extremities: No lower extremity edema. No calf ttp Neuro: Oriented X 3. No motor deficit. No sensory deficit. CN2-12 intact Course Course Course Narrative: RME, this is a rapid medical exam performed by Lencho Elliott please refer to primary provider for complete H&P- 39-year-old male presents for evaluation of right lower abdominal pain that radiates towards his right testicle. He reports some testicular swelling. Plan for labs urinalysis and scrotal ultrasound with Doppler. Medications Administered Discontinued Medications Generic Name Dose Route Start Last Admin Trade Name Freq PRN Reason Stop Dose Admin Lactated Ringer's 1,000 mls @ 999 mls/hr 11/19/24 13:03 11/19/24 14:10 Lr IV 11/19/24 14:03 Infused .Q1H1M ONE Infusion Iohexol 100 ml 11/19/24 16:08 11/19/24 16:08 Iohexol 350 Mg/Ml 100 Ml Infus..Btl IV 11/19/24 16:09 85 ml ONCE ONE Administration Ketorolac Tromethamine 15 mg 11/19/24 13:03 11/19/24 13:17 Ketorolac Tromethamine 15 Mg/Ml Vial IVPUSH 11/19/24 13:04 15 mg ONCE ONE Administration Ondansetron HCl 4 mg 11/19/24 13:03 11/19/24 13:17 Ondansetron Hcl 4 Mg/2 Ml Vial IVPUSH 11/19/24 13:04 4 mg ONCE ONE Administration Medical Decision Making Medical Decision Making [facility] Narrative: 39 yo male with no PMH hx of cholecystectomy who presents with worsening RLQ pain and nausea on initial exam I do not feel an incarcerated hernia he will need US and CT scan - US initial reported no hernia or abnormality I am going to test further for hernia/appendix pathology/renal colic. Will start on IVF and toradol for pain Differential Diagnosis Differential Diagnoses: The differential diagnosis associated with the presentation includes appendiceal pathology, epidydimitis, hernia, constipation Admission/Observation Consideration of admission/observation: Escalation of care including admission/observation considered no sig findings on CT scan chronic WBC count stable for DC given 1 week duration and possible ileitis will start on augmentin and he will follow with his [facility] GI doctor Lab Data [facility] Lab Attestation statement: I reviewed the patient's lab results. 11/19/24 12:36 11/19/24 12:36 Labs: Lab Results 11/19/24 11/19/24 11/19/24 Range/Units 12:36 14:04 14:05 WBC 14.1 H (4.8-10.8) X10*3/uL RBC 5.12 (4.60-5.80) X10*6/uL Hgb 14.8 (14.0-18.0) g/dl Hct 41.3 L (42.0-52.0) % MCV 80.7 (80.0-98.0) fL MCH 28.9 (27.0-33.0) pg MCHC 35.8 (31.0-36.0) g/dl RDW 12.7 (11.0-16.0) % Plt Count 316 (160-400) X10*3/uL MPV 9.9 (9.4-12.4) fL Immature Gran % (Auto) 0.8 H (0.0-0.4) % Neut % (Auto) 61.8 (45-73) % Lymph % (Auto) 28.2 (20-40) % [place] % (Auto) 5.4 (2-11) % Eos % (Auto) 3.3 (0-4) % Baso % (Auto) 0.5 (0-2) % Lymph # (Auto) 4.0 (1.2-4.9) X10*3/uL [place] # (Auto) 0.8 (0.1-1.2) X10*3/uL Eos # (Auto) 0.5 H (0.0-0.4) X10*3/uL Baso # (Auto) 0.1 (0.0-0.2) X10*3/uL Abs Immat Gran (auto) 0.11 H (0.00-0.03) X10*3/uL Absolute Neuts (auto) 8.7 H (2.0-8.3) x10*3/uL Absolute Nucleated RBC 0.000 (0.0-0.012) X10*3/uL Nucleated RBC % (auto) 0.0 (0.0-0.2) /100WBC Sodium 139 (135-145) mmol/L Potassium 4.1 (3.3-5.1) mmol/L Chloride 106 (96-108) mmol/L Carbon Dioxide 24 (22-29) mmol/L Anion Gap 13 (12-20) BUN 17 H (9-16) mg/dL Creatinine 0.87 (0.5-1.4) mg/dL Estim Creat Clear Calc 123.3 Estimated GFR > 60 Random Glucose 126 H (60-115) mg/dL Calcium 9.9 (8.4-10.2) mg/dL Total Bilirubin 0.3 (0.0-1.0) mg/dL AST 28 (5-37) U/L ALT 52 H (0-40) U/L Alkaline Phosphatase 92 (39-117) U/L Total Protein 7.5 (6.5-8.0) g/dL Albumin 5.1 H (3.5-5.0) g/dL Lipase 25 (8-78) U/L Urine Color Yellow Urine Appearance Clear Urine pH 6.0 (5.0-9.0) Ur Specific [place] 1.015 (1.005-1.025) Urine Protein Negative (Neg-Trace) mg/dL Urine Glucose (UA) Negative (Negative) mg/dL Urine Ketones Negative (Negative) mg/dL Urine Blood Negative (Negative) Urine Nitrite Negative (Negative) Ur Leukocyte Esterase Negative (Negative) Urine RBC 0-2 (0-2) /HPF Urine WBC 0-5 (0-5) /HPF Ur Squamous Epith Cells 0-2 (0-2) /HPF Urine Bacteria None Seen (None Seen) Hyaline Casts 0-2 (0-2) /LPF Chlam trachomat DNA PCR NOT DETECTED (Not Detect.) N.gonorrhoeae DNA (PCR) NOT DETECTED (Not Detect.) Independent Interpretation I performed an independent interpretation of an: Ultrasound (no cause for his pain) and CT Scan (infl ileum and shotty nodes) Radiology Impression Discussion of test interpretation with radiology: I have reviewed the radiologist's reading. External Record Review External record reviewed: Outpatient record Prescription Management I considered prescription management with: Pain Medication, Antibiotic and Other Discharge Plan Discharge Clinical Impression: Ileitis Abdominal pain Qualifiers: Abdominal location: right lower quadrant Qualified Code(s): R10.31 - Right lower quadrant pain Instructions: Abdominal Pain (ED) Additional Instructions: CT/CT abdomen pelvis w IV con IMPRESSION: Shotty mesenteric nodes are noted in the region of the distal ileum, a nonspecific finding. Fatty liver Cholecystectomy US/US scrotum doppler IMPRESSION: Small bilateral hydroceles. this is not the cause of your pain incidental finding labs reassuring, you have a chronic white blood cell count, urine normal CT scan shows possible inflammation of the ileum US shows no active infection of your scrotum at this time follow up with your GI doctor, return for fevers, severe pain, bloody stools or any other concerns rest and stay hydrated On amoxicillin-clavulanate, softer bowel movements are to be expected. Call your provider if you move your bowels more than 4 times a day, your bowel movements are almost all liquid, or you get a rash.? Prescriptions: New cyclobenzaprine 10 mg tablet 10 mg PO TID PRN (Reason: muscle spasm) Qty: 20 0RF ibuprofen 600 mg tablet 600 mg PO Q6H PRN (Reason: pain) Qty: 30 0RF ondansetron 4 mg tablet,disintegrating 4 mg PO Q8H PRN (Reason: nausea and vomiting) Qty: 20 0RF amoxicillin-pot clavulanate 875-125 mg tablet 1 tab PO BID Qty: 14 0RF No Action amoxicillin-pot clavulanate 875-125 mg tablet 1 tab PO BID 10 Days Qty: 20 0RF pantoprazole 40 mg tablet,delayed release (DR/EC) 40 mg PO DAILY ibuprofen 800 mg tablet 800 mg PO TID Print Language: Lao
[2024-11-19 12:41] LABS: MANUAL DIFF FLAG NO
[2024-11-19 12:43] LABS: Basophils Absolute Auto 0.1 X10*3/uL (0.0-0.2); Basophils Percent Auto 0.5 % (0-2); Eosinophils Absolute Auto 0.5 X10*3/uL (0.0-0.4); Eosinophils Percent Auto 3.3 % (0-4); Hematocrit 41.3 % (42.0-52.0); Hemoglobin 14.8 g/dl (14.0-18.0); Imm Gran Abs Auto 0.11 X10*3/uL (0.00-0.03); Imm Gran Pct Auto 0.8 % (0.0-0.4); Lymphocytes Percent Auto 28.2 % (20-40); Mean Corpuscular HGB Conc 35.8 g/dl (31.0-36.0); Mean Corpuscular Hemoglobin 28.9 pg (27.0-33.0); Mean Corpuscular Volume 80.7 fL (80.0-98.0); Mean Platelet Volume 9.9 fL (9.4-12.4); Monocytes Absolute Auto 0.8 X10*3/uL (0.1-1.2); Monocytes Percent Auto 5.4 % (2-11); Neutrophils Absolute Auto 8.7 x10*3/uL (2.0-8.3); Neutrophils Percent Auto 61.8 % (45-73); Platelet Count 316 X10*3/uL (160-400); Red Blood Count 5.12 X10*6/uL (4.60-5.80); Red Cell Distribution Width 12.7 % (11.0-16.0); White Blood Count 14.1 X10*3/uL (4.8-10.8)
[2024-11-19 13:13] LABS: Alanine Aminotransferase 52 U/L (0-40); Albumin Level 5.1 g/dL (3.5-5.0); Alkaline Phosphatase 92 U/L (39-117); Anion Gap 13 (12-20); Aspartate Amino Transferase 28 U/L (5-37); Bilirubin Total 0.3 mg/dL (0.0-1.0); Blood Urea Nitrogen 17 mg/dL (9-16); Calcium 9.9 mg/dL (8.4-10.2); Carbon Dioxide 24 mmol/L (22-29); Chloride 106 mmol/L (96-108); Creatinine Clr Calc Pharmacy 123.3; Estimated Glomerular Filt Rate > 60; Glucose Random 126 mg/dL (60-115); Lipase 25 U/L (8-78); Potassium 4.1 mmol/L (3.3-5.1); Sodium 139 mmol/L (135-145); Total Protein 7.5 g/dL (6.5-8.0)
[2024-11-19] MEDS: Lactated Ringers 1,000 ML 999 ML IV (13:13)
[2024-11-19] MEDS: Ketorolac Tromethamine 15 MG/ML VIAL IVPUSH (13:17)
[2024-11-19] MEDS: ondansetron HCL 4 MG/2 ML VIAL IVPUSH (13:17)
[2024-11-19 13:24] VITALS: BP 151/91; PULSE 80; RESP 20; TEMP 36.4; O2SAT 96
--- NOTE | 2024-11-19 13:27 | PC.NURSE ---
Patient A&O x 3. Patient presents to ED c/o right testicular pain which travels into right lower abdomen rated 6/10. Denies SOB, Denies injury, Denies fever/chills. Patient states this started a week ago . Patient was nauseous on arrival and has been corrected by medication. External appearance scrotum looks normal, but patient complains of pain when touched or moved. US of scrotum shows small bilateral hydroceles and the right hydrocele has particulate echoes.20G in right ac currently running 1L LR. Plan of care on going
[2024-11-19 14:00] VITALS: BP 132/89; PULSE 68; RESP 16; TEMP 36.7; O2SAT 97
[2024-11-19 14:18] LABS: Appearance Urine Clear; Color Urine Yellow; Glucose Urine UA Negative (Negative); Leukocyte Esterase Urine Negative (Negative); Nitrite Urine Negative (Negative); Specific Gravity - Urine 1.015 (1.005-1.025); Urine Blood Negative (Negative); Urine Ketones Negative (Negative); Urine Protein Negative (Neg-Trace)
[2024-11-19 14:22] LABS: Bacteria Urine None Seen (None Seen); Hyaline Casts Urine 0-2 /LPF (0-2); RBC Urine 0-2 /HPF (0-2); Squamous Epithelial Cell Urine 0-2 /HPF (0-2); WBC Urine 0-5 /HPF (0-5)
[2024-11-19 16:05] LABS: CT PCR NOT DETECTED (Not Detect.); NG PCR NOT DETECTED (Not Detect.)
[2024-11-19] MEDS: iohexoL 350 MG/ML 100 ML INFUS..BTL IV (16:08)
[2024-11-19 16:53] VITALS: BP 141/76; PULSE 56; RESP 18; TEMP 36.5; O2SAT 100
[2024-11-19 16:57] VITALS: BP 141/76; PULSE 56; RESP 18; TEMP 36.5; O2SAT 100
== END 2024-11-19 17:09 | disposition home or self-care (01) ==
PROVIDERS: Physician Assistant; Emergency Provider Emergency Medicine; PCP Internal Medicine
DX: K52.9 Noninfective gastroenteritis and colitis, unspecified (principal); R10.31 Right lower quadrant pain; N50.811 Right testicular pain; R11.2 Nausea with vomiting, unspecified; Z79.899 Other long term (current) drug therapy
CPT/HCPCS: 36415; 74177; 76870; 80053; 81001; 83690; 85025; 87491; 87591; 93975; 96361; 96374; 96375; 99285; J1885; J2405; J7120; Q9967

== ENCOUNTER → 2024-11-19 12:24 | Outpatient (BNV) | payer OTHER, SELFPAY | PROVIDERS: Emergency Provider Emergency Medicine; PCP Internal Medicine; Visit Provider Radiology Diagnostic Radiology | DX: K76.0 Fatty (change of) liver, not elsewhere classified (principal); N43.3 Hydrocele, unspecified | CPT/HCPCS: 76870; 93975 ==